=== PATIENT | male | born 1945 | race Caucasian/White ===

== ENCOUNTER 2020-10-09 13:25 | Outpatient (CLI) | payer MEDICARE | END 2020-10-09 13:26 | disposition home or self-care (01) | LOC: CSHCT 13:25 | PROVIDERS: ATTEND Thoracic Surgery (Cardiothoracic Vascular Surgery) | DX: I65.23 Occlusion and stenosis of bilateral carotid arteries (principal); M89.9 Disorder of bone, unspecified; R91.8 Other nonspecific abnormal finding of lung field | CPT/HCPCS: 70498; 82565 ==